=== PATIENT | male | born 2000 | race Caucasian/White ===

== ENCOUNTER 2024-12-23 21:08 | Emergency (ER) | payer MEDICAID ==
[~2024-12-23] VITALS: Ht 160 cm; Wt 55.9 kg
[2024-12-23 21:22] VITALS: BP 121/70; PULSE 83; RESP 16; TEMP 98.6; O2SAT 99
[2024-12-23 21:53] LABS: COVID AG,FIA SOURCE NASAL SWAB
[2024-12-23 22:11] LABS: AMPHET/METH SCREEN,URINE NEGATIVE (NEGATIVE); BARBITURATE SCREEN, URINE NEGATIVE (NEGATIVE); CANNABINOID SCREEN,URINE NEGATIVE (NEGATIVE); COCAINE SCREEN,URINE NEGATIVE (NEGATIVE); METHADONE SCREEN, URINE NEGATIVE (NEGATIVE)
[2024-12-23 22:14] LABS: CALCIUM, TOTAL 8.6 mg/dL (8.8-10.5); CREATININE 1.06 mg/dL (0.60-1.30); GLOMERULAR FILTR. RATE CALC > 60 mL/min (>60); GLUCOSE,RANDOM 96 mg/dL (70-110); SODIUM SERUM 138 mmol/L (136-145); UREA NITROGEN, BLOOD 12 mg/dL (7-18)
[2024-12-23 22:18] LABS: PH,URINE DRUG SCREEN 6.0 (5.0-8.0)
[2024-12-23 22:19] LABS: ASPARTATE AMINOTRANSFERASE 48 U/L (15-37); TOTAL PROTEIN, SERUM 7.7 g/dL (6.4-8.2)
[2024-12-23 22:24] LABS: TROPONIN I-HIGH SENSITIVITY Less Than 4 ng/L (<76)
[2024-12-23 22:30] LABS: ALCOHOL, URINE DRUG SCREEN NEGATIVE (NEGATIVE)
[2024-12-23 22:45] LABS: ALCOHOL, BLOOD (SERUM) < 3 mg/dL (0-10)
[2024-12-23 22:48] LABS: INFLUENZA TYPE A NEGATIVE FOR TYPE A (NEGATIVE); INFLUENZA TYPE B NEGATIVE FOR TYPE B (NEGATIVE); SARS-COV2 (COVID) ANTIGEN,FIA Negative (Negative)
[2024-12-23] MEDS ORDERED: GUAIFDM PO (22:59)
[2024-12-23] MEDS ORDERED: ACET-2080 PO (22:59)
[2024-12-23] MEDS ORDERED: IBUP-1554 PO (22:59)
[2024-12-23] MEDS: ACETAMINOPHEN/CODEINE 300-30 MG TABLET PO ONE (23:21)
[2024-12-23] MEDS: IBUPROFEN 600 MG TABLET PO ONE (23:21)
== END 2024-12-23 23:27 | disposition home or self-care (01) ==
LOC: EMS 21:08
DX: J20.9 Acute bronchitis, unspecified (principal); R51.9 Headache, unspecified; R11.0 Nausea; R53.1 Weakness; Z79.899 Other long term (current) drug therapy; Z20.822 Contact with and (suspected) exposure to COVID-19
CPT/HCPCS: 99285; 71045; 87426; 80053; 84484; 87804; 36415; 93005; 80307; G0480